=== PATIENT | female | born 1970 | race Two or more races ===

== ENCOUNTER 2017-06-22 18:11 | Emergency (ER) | payer MEDICAID ==
[~2017-06-22] VITALS: Ht 165.1 cm; Wt 96.6 kg
[~2017-06-22 18:11] MED LIST: ANTIVERT25 MG ORAL; ATIVAN0.5 MG ORAL; CIPROFLOXACIN500 M2 ORAL; FIORICET1 EA ORAL; FLONASE1 SPRAYS NASAL; IBUPROFEN600 MG ORAL; KEFLEX500 MG ORAL; MAALOX MAXIMUM355 M1 PO; MECLIZINE HCL25 MG ORAL; MEDROL DOSEPAK4 MG ORAL; NITROFURANTOIN100 M2 ORAL; OMEPRAZOLE40 M1 ORAL; PEPCID20 MG ORAL; PEPCID40 MG PO; POTASSIUM CHLO20 ME3 PO; PSEUDOEPHEDRIN120 MG PO; TAMOXIFEN CITRA10 MG ORAL; ZOFRAN ODT4 MG ORAL; ZOFRAN4 MG ORAL
[2017-06-22 18:23] VITALS: BP 147/77
--- NOTE | 2017-06-22 18:23 | Emergency Room Report ---
History of Present Illness General Chief Complaint: Upper Respiratory Illness Source: Patient, Medical Record Present Illness HPI 47-year-old female presents to the emergency department complaining of cough, congestion, rhinorrhea, increased mucus and sore throat x1 week. Patient denies fevers, chills, though contacts or recent travel. Patient denies neck pain or stiffness. Patient denies headache. Patient states she has not had her flu vaccination this year. Patient states she has been taking over-the- counter Robitussin which does not provide relief of her symptoms. Patient states that she is coughing consistently to the point that she is having body aches that she rates as 10 out of 10 in severity. Denies dyspnea, wheezing or SOB. Patient reports history of GERD and states that she needs a refill on these medications in addition to her antianxiety medication BuSpar. Denies rashes, abdominal pain, lower extremity swelling, CP, Palpitations, LOC, AMS, dizziness, Changes in Vision, Sensation, paresthesias, or a sudden severe headache. Allergies: Coded Allergies: No Known Allergies (Unverified , 12/10/12) Patient History Past Medical History: see triage record Past Surgical History: none Pertinent Family History: none Last Menstrual Period: menopause Now: No Reviewed Nursing Documentation: PMH: Agreed, PSxH: Agreed Nursing Documentation-PMH Past Medical History: No History, Except For Hx Cardiac Problems: No Hx Hypertension: No Hx Pacemaker: No Hx Asthma: No Hx COPD: No Hx Diabetes: No Hx Cancer: Yes - breast cancer, mastectomy right side 2009 Hx Gastrointestinal Problems: Yes - gastritis Hx Dialysis: No Hx Neurological Problems: No Hx Cerebrovascular Accident: No Hx Seizures: No Review of Systems All Other Systems: negative except mentioned in HPI Physical Exam Vital Signs Date Time Temp Pulse Resp B/P (MAP) Pulse Ox O2 Delivery O2 Flow Rate FiO2 06/22/17 18:13 97.9 76 18 147/77 100 Room Air Sp02 EP Interpretation: reviewed, normal General Appearance: no apparent distress, alert, GCS 15, non-toxic Head: normocephalic ENT: hearing grossly normal, normal pharynx, normal voice, TMs + canals normal , uvula midline, moist mucus membranes, nasal congestion Neck: full range of motion, no meningismus, no bony tend, supple/symm/no masses Respiratory: chest non-tender, lungs clear, normal breath sounds, no rhonchi, no respiratory distress, no wheezing, speaking full sentences Cardiovascular #1: regular rate, rhythm, normal capillary refill Musculoskeletal: back normal, gait/station normal, normal range of motion Neurologic: alert, oriented x3, responsive, motor strength/tone normal, sensory intact, speech normal Skin: normal color, no rash, warm/dry, well hydrated Lymphatic: no adenopathy Medical Decision Making PA Attestation Dr. Roberts is my supervising Physician whom patient management has been discussed with. Diagnostic Impression: Primary Impression: Upper respiratory infection Qualified Codes: J06.9 - Acute upper respiratory infection, unspecified; B97.89 - Other viral agents as the cause of diseases classified elsewhere Additional Impressions: GERD (gastroesophageal reflux disease) Qualified Codes: K21.9 - Gastro-esophageal reflux disease without esophagitis Dysuria ER Course 47-year-old female presents to the emergency department complaining of cough, congestion, rhinorrhea, increased mucus and sore throat x1 week. Patient denies fevers, chills, though contacts or recent travel. Patient denies neck pain or stiffness. Patient denies headache. Patient states she has not had her flu vaccination this year. Patient states she has been taking over-the- counter Robitussin which does not provide relief of her symptoms. Patient states that she is coughing consistently to the point that she is having body aches that she rates as 10 out of 10 in severity. Denies dyspnea, wheezing or SOB. Patient reports history of GERD and states that she needs a refill on these medications in addition to her antianxiety medication BuSpar. Denies rashes, abdominal pain, lower extremity swelling, CP, Palpitations, LOC, AMS, dizziness, Changes in Vision, Sensation, paresthesias, or a sudden severe headache. Ddx considered but are not limited to URI, pneumonia, PE, strep pharyngitis, meningitis, bronchitis. Vital signs: Pt. is afebrile, the remaining VS are WNL H&PE are most consistent with URI- no meningeal signs, oropharynx is not involved, no evidence of bacterial infection at this time. ORDERS: none required at this time, the diagnosis is clinical ED INTERVENTIONS: None required at this time. DISCHARGE: At this time pt. is stable for d/c to home. Will provide printed patient care instructions, and any necessary prescriptions. Care plan and follow up instructions have been discussed with the patient prior to discharge. Last Vital Signs Date Time Temp Pulse Resp B/P (MAP) Pulse Ox O2 Delivery O2 Flow Rate FiO2 06/22/17 18:13 97.9 76 18 147/77 100 Room Air Disposition: HOME, SELF-CARE Condition: Stable Scripts Buspirone Hcl* (BUSPIRONE HCL*) 5 Mg Tablet 5 MG ORAL TID, #90 TAB 0 Refills Prov: Francesca Winter 06/22/17 Codeine/Promethazine Hcl* (PROMETHAZINE-CODEINE SYRUP*) 118 Ml Syrup 5 ML ORAL Q6H Y for For Cough, #120 ML 0 Refills Prov: Francesca Winter 06/22/17 Guaifenesin (Guaifenesin) 1,200 Mg Tab.er.12h 1200 MG PO Q12HR, #20 TAB Prov: Francesca Winter 06/22/17 Ranitidine Hcl* (ZANTAC*) 150 Mg Tablet 150 MG ORAL TWICE A DAY, #30 TAB Prov: Francesca Winter 06/22/17 Ibuprofen* (MOTRIN*) 400 Mg Tablet 400 MG ORAL THREE TIMES A DAY, #30 TAB 0 Refills Prov: Francesca Winter 06/22/17 Phenazopyridine Hcl* (PYRIDIUM*) 200 Mg Tablet 200 MG ORAL THREE TIMES A DAY for 3 Days, #9 TAB 0 Refills Prov: Francesca Winter 06/22/17 Patient Instructions: Upper Respiratory Infection, Adult Additional Instructions: Take medications as directed. Follow up with a Primary Care Provider in 3-5 days, even if your symptoms have resolved. --Please review list of primary care clinics, if you do not already have a primary care provider Return sooner to ED if new symptoms occur, or current symptoms become worse. Do not drink alcohol, drive, or operate heavy machinery while taking Cough Syrup as this may cause drowsiness. - Please note that this Emergency Department Report was dictated using [employer] professional sports technology software, occasionally this can lead to erroneous entry secondary to interpretation by the dictation equipment. Francesca Winter Jun 22, 2017 18:23
[2017-06-22] MEDS ORDERED: GUAIFENESIN1200 MG PO (19:07)
[2017-06-22] MEDS ORDERED: ZANTAC150 MG ORAL (19:07)
[2017-06-22] MEDS ORDERED: IBUPROFEN400 MG ORAL (19:07)
[2017-06-22] MEDS ORDERED: PROMETHAZINE-C118 M1 ORAL (19:07)
[2017-06-22] MEDS ORDERED: PHENAZOPYRIDIN200 MG ORAL (19:07)
[2017-06-22] MEDS ORDERED: BUSPIRONE HCL5 M1 ORAL (19:23)
[2017-06-22 19:26] VITALS: BP 147/77
== END 2017-06-22 19:26 | disposition home or self-care (01) ==
LOC: EMR 19:15
DX: J06.9 Acute upper respiratory infection, unspecified (principal); K21.9 Gastro-esophageal reflux disease without esophagitis; R30.0 Dysuria; Z85.3 Personal history of malignant neoplasm of breast; Z90.11 Acquired absence of right breast and nipple
CPT/HCPCS: 99284

== ENCOUNTER 2017-07-06 12:30 | Emergency (ER) | payer MEDICAID ==
[~2017-07-06] VITALS: Ht 162.6 cm; Wt 90.7 kg
[~2017-07-06 12:30] MED LIST changes: +BUSPIRONE HCL5 M1 ORAL; +GUAIFENESIN1200 MG PO; +IBUPROFEN400 MG ORAL; +PHENAZOPYRIDIN200 MG ORAL; +PROMETHAZINE-C118 M1 ORAL; +ZANTAC150 MG ORAL
[2017-07-06] MEDS ORDERED: NAPROXEN500 M2 ORAL (13:05)
[2017-07-06] MEDS ORDERED: AMOXICILLIN500 MG ORAL (13:05)
[2017-07-06] MEDS ORDERED: LORazepam 0.5mg tab ORAL ONE (13:15)
[2017-07-06 13:17] LABS: KETONES,URINE NEGATIVE (NEGATIVE); LEUKOCYTE ESTERASE ,URINE 2+ (NEGATIVE); NITRITE,URINE NEGATIVE (NEGATIVE); PH,URINE 6 (4.5-8.0); PROTEIN,URINE 2+ (NEGATIVE); UROBILINOGEN,URINE NORMAL MG/DL (0.0-1.0)
[2017-07-06 13:26] LABS: APPEARANCE,URINE SLIGHTLY CLOUDY
[2017-07-06 13:27] LABS: RBC,URINE 60-80 /HPF (0 - 2)
[2017-07-06 13:28] LABS: BACTERIA,URINE FEW /HPF; SQUAMOUS EPITHELIAL CELL,UR FEW /LPF (NONE/OCC)
[2017-07-06] MEDS ORDERED: SERTRALINE HCL25 MG ORAL (13:31)
--- NOTE | 2017-07-06 13:40 | Emergency Room Report ---
History of Present Illness General Chief Complaint: Female Urogenital Problems Source: Patient Present Illness HPI The patient is a 47-year-old female presenting for abdominal pain, dysuria, and vaginal bleeding since yesterday. She was diagnosed with a UTI approximately 2 weeks prior and placed on nitrofurantoin. She states that symptoms did resolve until yesterday. She denies any vaginal bleeding until yesterday. Last normal menstrual period was in 2008 when the patient underwent chemotherapy for breast cancer which is in remission. She's also expressing abdominal pain described as an 8/10 dull ache to the mid lower abdomen. Does not radiate. No known provoking or relieving factors. She does admit to fatigue and feelings of anxiety as she recently had a family member pass away. She denies other symptoms including nausea, vomiting, fever, chills, back pain, vaginal discharge Allergies: Coded Allergies: No Known Allergies (Unverified , 12/10/12) Patient History Past Medical History: see triage record Pertinent Family History: none Reviewed Nursing Documentation: PMH: Agreed, PSxH: Agreed Nursing Documentation-PMH Hx Cardiac Problems: No Hx Hypertension: No Hx Pacemaker: No Hx Asthma: No Hx COPD: No Hx Diabetes: No Hx Cancer: Yes - breast cancer, mastectomy right side 2008 Hx Gastrointestinal Problems: Yes - gastritis Hx Dialysis: No Hx Neurological Problems: No Hx Cerebrovascular Accident: No Hx Seizures: No Review of Systems All Other Systems: negative except mentioned in HPI Physical Exam Vital Signs Date Time Temp Pulse Resp B/P (MAP) Pulse Ox O2 Delivery O2 Flow Rate FiO2 07/06/17 12:44 98.1 82 20 135/87 99 Room Air Sp02 EP Interpretation: reviewed, normal General Appearance: no apparent distress, alert, GCS 15, non-toxic Head: normocephalic, atraumatic Eyes: bilateral eye normal inspection, bilateral eye PERRL ENT: hearing grossly normal, normal pharynx, no angioedema, normal voice Neck: full range of motion, supple/symm/no masses Respiratory: chest non-tender, lungs clear, normal breath sounds, speaking full sentences Cardiovascular #1: regular rate, rhythm, no edema Gastrointestinal: normal bowel sounds, soft, non-distended, no guarding, no rebound, tenderness - suprapubic Genitourinary: normal inspection, no CVA tenderness Musculoskeletal: back normal, gait/station normal, normal range of motion, non- tender Neurologic: alert, oriented x3, responsive, motor strength/tone normal, sensory intact, speech normal Psychiatric: judgement/insight normal, memory normal, mood/affect normal, no suicidal/homicidal ideation Skin: normal color, no rash, warm/dry, well hydrated Medical Decision Making PA Attestation Dr. Orourke is my supervising physician. Patient management was discussed with my supervising physician Diagnostic Impression: Primary Impression: Endometrial mass Additional Impression: Anxiety ER Course The patient is a 47-year-old female presenting for abdominal pain, dysuria, and vaginal bleeding since yesterday Differential diagnoses considered include but not limited to Uterine fibroids, ovarian cyst, UTI, malignancy, among others Physical exam: Afebrile. No apparent distress Abdomen is soft. There is tenderness over suprapubic region only. Normal bowel sounds. Nondistended. no CVA tenderness Blood work unremarkable. UA shows blood. No signs of infection US: Pelvic ultrasound shows endometrial mass which could be consistent with malignancy. The patient was given this report and findings interpreted with son in the room. The report was given to the patient and she will followup with her primary doctor soon as possible. She was informed of the urgency of this matter. The patient has been having anxiety due to recent passing of her brother. This news has furthered the feelings. The patient will be discharged home with a limited prescription for Ativan. ER precautions are given Laboratory Tests Test 07/06/17 12:55 07/06/17 13:54 07/06/17 14:45 Urine Color Pale yellow Urine Appearance Slightly cloudy Urine pH 6 (4.5-8.0) Urine Specific [place] 1.015 (1.005-1.035) Urine Protein 2+ (NEGATIVE) H Urine Glucose (UA) Negative (NEGATIVE) Urine Ketones Negative (NEGATIVE) Urine Occult Blood 5+ (NEGATIVE) H Urine Nitrite Negative (NEGATIVE) Urine Bilirubin Negative (NEGATIVE) Urine Urobilinogen Normal MG/DL (0.0-1.0) Urine Leukocyte Esterase 2+ (NEGATIVE) H Urine RBC 60-80 /HPF (0 - 2) H Urine WBC 2-4 /HPF (0 - 2) Urine Squamous Epithelial Cells Few /LPF (NONE/OCC) Urine Bacteria Few /HPF (NONE) White Blood Count 8.1 K/UL (4.8-10.8) Red Blood Count 4.89 M/UL (4.20-5.40) Hemoglobin 15.3 G/DL (12.0-16.0) Hematocrit 46.4 % (37.0-47.0) Mean Corpuscular Volume 95 FL (80-99) Mean Corpuscular Hemoglobin 31.3 PG (27.0-31.0) H Mean Corpuscular Hemoglobin Concent 33.0 G/DL (32.0-36.0) Red Cell Distribution Width 12.4 % (11.6-14.8) Platelet Count 259 K/UL (150-450) Mean Platelet Volume 7.2 FL (6.5-10.1) Neutrophils (%) (Auto) 58.6 % (45.0-75.0) Lymphocytes (%) (Auto) 34.1 % (20.0-45.0) Monocytes (%) (Auto) 5.9 % (1.0-10.0) Eosinophils (%) (Auto) 0.4 % (0.0-3.0) Basophils (%) (Auto) 1.0 % (0.0-2.0) Sodium Level 138 MMOL/L (136-145) Potassium Level 4.1 MMOL/L (3.5-5.1) Chloride Level 103 MMOL/L (98-107) Carbon Dioxide Level 29 MMOL/L (21-32) Anion Gap 6 mmol/L (5-15) Blood Urea Nitrogen 11 mg/dL (7-18) Creatinine 0.8 MG/DL (0.55-1.30) Estimate Glomerular Filtration Rate > 60 mL/min (>60) Glucose Level 137 MG/DL (74-106) H Calcium Level 8.8 MG/DL (8.5-10.1) Total Bilirubin 0.3 MG/DL (0.2-1.0) Aspartate Amino Transferase (AST) 24 U/L (15-37) Alanine Aminotransferase (ALT) 52 U/L (12-78) Alkaline Phosphatase 61 U/L (46-116) Total Protein 7.9 G/DL (6.4-8.2) Albumin 3.6 G/DL (3.4-5.0) Globulin 4.3 g/dL Albumin/Globulin Ratio 0.8 (1.0-2.7) L Prothrombin Time 12.4 SEC (9.30-11.50) H Prothrombin Time INR 1.2 (0.9-1.1) H PTT 34 SEC (23-33) H Lab Results Impression Blood work unremarkable. UA shows blood. No signs of infection CT/MRI/US Diagnostic Results CT/MRI/US Diagnostic Results : Imaging Test Ordered: Pelvic US Impression Pelvic ultrasound shows endometrial mass which could be consistent with malignancy. Last Vital Signs Date Time Temp Pulse Resp B/P (MAP) Pulse Ox O2 Delivery O2 Flow Rate FiO2 07/06/17 12:44 98.1 82 20 135/87 99 Room Air Status: improved Disposition: HOME, SELF-CARE Condition: Improved Scripts Lorazepam* (ATIVAN*) 0.5 Mg Tablet 0.5 MG ORAL THREE TIMES A DAY, #12 TAB Prov: SU GARCES 07/06/17 Ibuprofen* (MOTRIN*) 600 Mg Tablet 600 MG ORAL Q8H Y for For Pain, #30 TAB 0 Refills Prov: SU GARCES 07/06/17 Referrals: NOT CHOSEN IPA/,REFERRING (PCP) Additional Instructions: I discussed my findings with the patient. All questions and concerns have been answered. Treatment and medication compliance have been addressed. I advised the patient that they need to follow up with PMD in 3-5 days. Return to ED if pain remains or worsens, cough worsens or remains, you notice blood in your sputum, you notice wheezing, you experience a fever, or if needed for any reason. Patient verbalized understanding of discharge instructions. SU GARCES Jul 06, 2017 13:40
[2017-07-06 14:12] LABS: ANION GAP 6 mmol/L (5-15); CALCIUM 8.8 MG/DL (8.5-10.1); CARBON DIOXIDE 29 MMOL/L (21-32); CHLORIDE 103 MMOL/L (98-107); CREATININE 0.8 MG/DL (0.55-1.30); GLOMERULAR FILTRATION RATE > 60 mL/min (>60); POTASSIUM 4.1 MMOL/L (3.5-5.1); SODIUM 138 MMOL/L (136-145)
[2017-07-06 14:17] LABS: ALANINE AMINOTRANSFERASE 52 U/L (12-78); ALBUMIN/GLOBULIN RATIO 0.8 (1.0-2.7); ASPARTATE AMINO TRANSFERASE 24 U/L (15-37); TOTAL PROTEIN 7.9 G/DL (6.4-8.2)
[2017-07-06 14:18] LABS: EOSINOPHILS % (AUTO) 0.4 % (0.0-3.0); LYMPHOCYTES % (AUTO) 34.1 % (20.0-45.0); MEAN CORPUSCULAR HEMOGLOBIN 31.3 PG (27.0-31.0); MEAN CORPUSCULAR VOLUME 95 FL (80-99); MEAN PLATELET VOLUME 7.2 FL (6.5-10.1); MONOCYTES % (AUTO) 5.9 % (1.0-10.0); NEUTROPHILS % (AUTO) 58.6 % (45.0-75.0); PLATELET COUNT 259 K/UL (150-450); RED BLOOD COUNT 4.89 M/UL (4.20-5.40); RED CELL DISTRIBUTION WIDTH 12.4 % (11.6-14.8); WHITE BLOOD COUNT 8.1 K/UL (4.8-10.8)
[2017-07-06 14:50] VITALS: BP 128/84
[2017-07-06 15:13] LABS: INR 1.2 (0.9-1.1); PROTHROMBIN TIME 12.4 SEC (9.30-11.50)
[2017-07-06 16:55] VITALS: BP 130/78
[2017-07-06] MEDS ORDERED: IBUPROFEN600 MG ORAL (18:36)
[2017-07-06] MEDS ORDERED: ATIVAN0.5 MG ORAL (18:36)
[2017-07-06 18:47] VITALS: BP 128/85
--- NOTE | 2017-07-08 10:39 | Diagnostic Imaging Report ---
Indication:Lower abdominal and pelvic pain Technique: Grayscale and duplex Doppler imaging of the pelvis performed utilizing a transabdominal scan and endovaginal scan. Comparison: None Findings: The endometrium is abnormally thickened and heterogeneous with multiple cystic regions noted. Further clinical evaluation possibly with hysteroscopy is suggested. The possibility of endometrial carcinoma should be considered. Differential includes a endometrial polyp versus hyperplasia. Within the uterine myometrium there are several discrete hypoechoic lesions likely fibroids. There is a dominant cyst demonstrated within the right ovary measuring approximately 4 cm. The left ovary is not visualized. The right ovary measures 4 x 4 0.2 x 2.7 CM. Uterus measures 12 x 10 x 8 CM. Impression: Abnormal appearance of the endometrium as described above. Further clinical evaluation is recommended. Biopsy may be needed. Dominant right ovarian cyst. Followup recommended. Nonvisualization of the left ovary [facility] has communicated the preliminary results to the Emergency Department. Their findings are largely concordant with this report.
== END 2017-07-06 18:50 | disposition home or self-care (01) ==
LOC: EMR 12:55
DX: R19.09 Other intra-abdominal and pelvic swelling, mass and lump (principal); F41.9 Anxiety disorder, unspecified; Z85.3 Personal history of malignant neoplasm of breast; Z90.11 Acquired absence of right breast and nipple
CPT/HCPCS: 36415; 76830; 76856; 80053; 81003; 85025; 85610; 85730; 99284

== ENCOUNTER 2017-08-26 19:14 | Emergency (ER) | payer MEDICAID ==
[~2017-08-26] VITALS: Ht 165.1 cm; Wt 95.3 kg
[~2017-08-26 19:14] MED LIST changes: +AMOXICILLIN500 MG ORAL; +NAPROXEN500 M2 ORAL; +SERTRALINE HCL25 MG ORAL
[2017-08-26 19:50] VITALS: BP 113/76
[2017-08-26] MEDS ORDERED: Meclizine 25mg tab ORAL ONE (20:30)
[2017-08-26] MEDS ORDERED: Dicyclomine HCl 10mg/5ml oral soln ORAL ONE (20:30)
[2017-08-26] MEDS ORDERED: Lidocaine 2% Visc 15ml soln ORAL ONE (20:30)
[2017-08-26] MEDS ORDERED: Mylanta II UD 30ml ORAL ONE (20:30)
[2017-08-26] MEDS ORDERED: RANITIDINE HCL150 MG ORAL (20:37)
[2017-08-26] MEDS ORDERED: ZOFRAN ODT4 MG ORAL (20:37)
[2017-08-26] MEDS ORDERED: MECLIZINE HCL25 MG ORAL (20:37)
[2017-08-26 20:41] VITALS: BP 112/74
[2017-08-26 20:44] VITALS: BP 112/74
--- NOTE | 2017-08-26 21:45 | Emergency Room Report ---
History of Present Illness General Chief Complaint: Nausea Source: Patient, Family Member Present Illness HPI 47-year-old female presents ED for evaluation. States the last 3 days she been feeling dizzy with headache. Also complaining of abdominal pain. Epigastric, throbbing, nonradiating. 03/27. Has history of gastritis. Denies fevers or chills. Denies neck stiffness. Denies chest pain or shortness of breath. Please of nausea denies vomiting. Mother aggravating relieving factors. Denies any other associated symptoms Allergies: Coded Allergies: No Known Allergies (Unverified , 12/10/12) Patient History Past Medical History: GERD Past Surgical History: none Pertinent Family History: none Social History: Denies: smoking, alcohol use, drug use Last Menstrual Period: 2008 Now: No Immunizations: UTD Reviewed Nursing Documentation: PMH: Agreed, PSxH: Agreed Nursing Documentation-PMH Hx Cardiac Problems: No Hx Hypertension: No Hx Pacemaker: No Hx Asthma: No Hx COPD: No Hx Diabetes: No Hx Cancer: Yes - breast cancer, mastectomy right side 2008 Hx Gastrointestinal Problems: Yes - gastritis Hx Dialysis: No Hx Neurological Problems: No Hx Cerebrovascular Accident: No Hx Seizures: No Review of Systems All Other Systems: negative except mentioned in HPI Physical Exam Vital Signs Date Time Temp Pulse Resp B/P (MAP) Pulse Ox O2 Delivery O2 Flow Rate FiO2 08/26/17 19:34 99.1 75 16 113/76 96 Room Air Sp02 EP Interpretation: reviewed, normal General Appearance: no apparent distress, alert, GCS 15, non-toxic Head: normocephalic, atraumatic Eyes: bilateral eye normal inspection, bilateral eye PERRL ENT: hearing grossly normal, normal pharynx, no angioedema, normal voice Neck: full range of motion, supple/symm/no masses Respiratory: chest non-tender, lungs clear, normal breath sounds, speaking full sentences Cardiovascular #1: regular rate, rhythm, no edema Cardiovascular #2: 2+ carotid (R), 2+ carotid (L), 2+ radial (R), 2+ radial (L) , 2+ dorsalis pedis (R), 2+ dorsalis pedis (L) Gastrointestinal: normal bowel sounds, non tender, soft, non-distended, no guarding, no rebound Rectal: deferred Genitourinary: normal inspection, no CVA tenderness Musculoskeletal: back normal, gait/station normal, normal range of motion, non- tender Neurologic: alert, oriented x3, responsive, motor strength/tone normal, sensory intact, speech normal Psychiatric: judgement/insight normal, memory normal, mood/affect normal, no suicidal/homicidal ideation Reflexes: 3+ bicep (R), 3+ bicep (L), 3+ tricep (R), 3+ tricep (L), 3+ knee (R) , 3+ knee (L) Skin: normal color, no rash, warm/dry, well hydrated Lymphatic: no adenopathy Medical Decision Making Diagnostic Impression: Primary Impression: Vertigo Additional Impressions: Gastritis Qualified Codes: K29.50 - Unspecified chronic gastritis without bleeding Anxiety ER Course Hospital Course 47-year-old F presents to ED with epigastric pain with Nausea, dizziness differential diagnosis: gastritis, SBO, cholecystits Clinical course Patient placed in chair. I reviewed EMR. Patient has been here multiple times for similar presentations of anxiety, vertigo, gastritis. Patient responded well to meclizine, GI cocktail and by mouth pepcid physical exam is unremarkable. EKG shows normal sinus rhythm no acute ischemic changes Patient feels better on reassessment. I priti patient can be safely discharged to home without further workup at this time I feel this is a highly complex case requiring extensive working including EKG/ Rhythm strip, Xray/CT/US, Blood/urine lab work, repeat exams while in ED, and administration of strong opiates/narcotics for pain control, admission to hospital or close patient follow up. Diagnosis - gastritis, vertigo, anxiety Stable and discharged to home with prescriptions for Zantac, zofran, meclizine. Followup with PMD. Return to ED if symptoms recur or worsen EKG Diagnostic Results Rate: normal Rhythm: NSR ST Segments: no acute changes ASA given to the pt in ED: No Rhythm Strip Diag. Results EP Interpretation: yes Rhythm: NSR, no PVC's, no ectopy Last Vital Signs Date Time Temp Pulse Resp B/P (MAP) Pulse Ox O2 Delivery O2 Flow Rate FiO2 08/26/17 20:44 98.9 72 16 112/74 96 Room Air Status: improved Disposition: HOME, SELF-CARE Condition: Stable Scripts Ranitidine Hcl* (ZANTAC*) 150 Mg Tablet 150 MG ORAL TWICE A DAY, #30 TAB Prov: CAL GUZMAN M.D. 08/26/17 Meclizine Hcl* (MECLIZINE*) 25 Mg Tablet 25 MG ORAL THREE TIMES A DAY, #20 TAB Prov: CAL GUZMAN M.D. 08/26/17 Ondansetron Odt* (ZOFRAN ODT*) 4 Mg Tab.rapdis 4 MG ORAL Q6H Y for Nausea & Vomiting, #30 TAB 0 Refills Prov: CAL GUZMAN M.D. 08/26/17 Referrals: NON PHYSICIAN (PCP) Patient Instructions: Gastritis, Adult, [id number] CAL GUZMAN M.D. Aug 26, 2017 21:45
--- NOTE | 2017-08-29 15:04 | Cardiology Report ---
APPROVED REPORT EKG Measurement Heart [id number] Normal sinus rhythm Normal ECG
== END 2017-08-26 20:46 | disposition home or self-care (01) ==
LOC: EMR 19:45
DX: K29.50 Unspecified chronic gastritis without bleeding (principal); R42 Dizziness and giddiness; F41.9 Anxiety disorder, unspecified; Z85.3 Personal history of malignant neoplasm of breast; Z90.11 Acquired absence of right breast and nipple
CPT/HCPCS: 93005; 99283

== ENCOUNTER 2018-01-19 19:40 | Emergency (ER) | payer MEDICAID ==
[~2018-01-19] VITALS: Ht 167.6 cm; Wt 106.6 kg
[~2018-01-19 19:40] MED LIST changes: +RANITIDINE HCL150 MG ORAL
[2018-01-19] MEDS ORDERED: Meclizine 25mg tab ORAL ONE (20:15)
[2018-01-19 20:57] LABS: BASOPHILS % (AUTO) 1.2 % (0.0-2.0); EOSINOPHILS % (AUTO) 1.7 % (0.0-3.0); HEMATOCRIT 42.7 % (37.0-47.0); HEMOGLOBIN 14.4 G/DL (12.0-16.0); LYMPHOCYTES % (AUTO) 41.4 % (20.0-45.0); MEAN CORPUSCULAR VOLUME 89 FL (80-99); MONOCYTES % (AUTO) 3.7 % (1.0-10.0); PLATELET COUNT 261 K/UL (150-450); RED BLOOD COUNT 4.79 M/UL (4.20-5.40); RED CELL DISTRIBUTION WIDTH 12.7 % (11.6-14.8); WHITE BLOOD COUNT 9.5 K/UL (4.8-10.8)
[2018-01-19 21:01] LABS: ANION GAP 11 mmol/L (5-15); BLOOD UREA NITROGEN 12 mg/dL (7-18); CALCIUM 8.8 MG/DL (8.5-10.1); CARBON DIOXIDE 26 MMOL/L (21-32); CHLORIDE 104 MMOL/L (98-107); CREATININE 0.8 MG/DL (0.55-1.30); POTASSIUM 4.1 MMOL/L (3.5-5.1); SODIUM 141 MMOL/L (136-145)
[2018-01-19 21:10] LABS: ALANINE AMINOTRANSFERASE 48 U/L (12-78); ALBUMIN 3.4 G/DL (3.4-5.0); ALBUMIN/GLOBULIN RATIO 0.7 (1.0-2.7); ALKALINE PHOSPHATASE 75 U/L (46-116); ASPARTATE AMINO TRANSFERASE 36 U/L (15-37); BILIRUBIN,TOTAL 0.3 MG/DL (0.2-1.0); CREATINE KINASE 105 U/L (26-308)
[2018-01-19 21:30] LABS: CKMB 0.6 NG/ML (0.0-3.6)
[2018-01-19 21:58] VITALS: BP 137/95
--- NOTE | 2018-01-19 21:58 | Emergency Room Report ---
History of Present Illness General Chief Complaint: Dizziness Source: Patient, Family Member Present Illness HPI This patient states that 3 days ago she woke up with a spinning sensation. She has also had nausea and vomiting. She states that the symptoms are much worse with sitting up or walking. The symptoms also occur with turning her head. She has had similar symptoms in the past. She denies headache. She denies trauma. She denies fever or chills. She denies recent illness. She also has another complaint that her gastritis has been poorly controlled. She has seen her primary care physician but has only been on [id number] Prilosec. She states that her symptoms persist. She has no other complaints. Allergies: Coded Allergies: No Known Allergies (Unverified , 12/10/12) Patient History Past Medical History: see triage record, GERD Past Surgical History: other - Breast Ca Social History: Denies: smoking, alcohol use, drug use Last Menstrual Period: 2008 Now: No Reviewed Nursing Documentation: PMH: Agreed; PSxH: Agreed Nursing Documentation-PMH Past Medical History: No History, Except For Hx Cardiac Problems: No Hx Hypertension: No Hx Pacemaker: No Hx Asthma: No Hx COPD: No Hx Diabetes: No Hx Cancer: Yes - breast cancer, mastectomy right side 2008 Hx Gastrointestinal Problems: Yes - gastritis Hx Dialysis: No Hx Neurological Problems: No Hx Cerebrovascular Accident: No Hx Seizures: No Review of Systems All Other Systems: negative except mentioned in HPI Physical Exam Vital Signs Date Time Temp Pulse Resp B/P (MAP) Pulse Ox O2 Delivery O2 Flow Rate FiO2 01/19/18 19:58 98.9 95 16 137/95 95 Room Air 99.0 Sp02 EP Interpretation: reviewed, normal General Appearance: no apparent distress, alert, GCS 15, non-toxic Head: normocephalic, atraumatic Eyes: bilateral eye normal inspection, bilateral eye PERRL ENT: hearing grossly normal, normal pharynx, no angioedema, normal voice Neck: full range of motion, supple/symm/no masses Respiratory: chest non-tender, lungs clear, normal breath sounds, speaking full sentences Cardiovascular #1: regular rate, rhythm, no edema Gastrointestinal: normal bowel sounds, non tender, soft, non-distended, no guarding, no rebound Rectal: deferred Musculoskeletal: back normal, gait/station normal, normal range of motion, non- tender Neurologic: alert, oriented x3, responsive, motor strength/tone normal, sensory intact, speech normal Psychiatric: judgement/insight normal, memory normal, mood/affect normal, no suicidal/homicidal ideation Skin: normal color, no rash, warm/dry, well hydrated Medical Decision Making Diagnostic Impression: Primary Impression: Vertigo Additional Impression: Hyperglycemia ER Course This patient has a physical exam at presentation consistent with benign positional vertigo. Other considerations include labyrinthitis, Mnire's disease, central vertigo. The patient's symptoms are short and episodic and have been positional. There are no central neurologic findings on physical exam which is very reassuring that this is not a posterior circulation stroke. Laboratory workup, EKG are unremarkable other than the patient has an elevated blood sugar. I will treat the patient with meclizine and have the patient follow up closely with the primary care physician. The patient was educated that she should f/u with the pcp for monitoring of the blood sugar. The patient was given return precautions and followup instructions. Laboratory Tests Test 01/19/18 20:10 01/19/18 20:30 Urine Opiates Screen Negative (NEGATIVE) Urine Barbiturates Screen Negative (NEGATIVE) Phencyclidine (PCP) Screen Negative (NEGATIVE) Urine Amphetamines Screen Negative (NEGATIVE) Urine Benzodiazepines Screen Negative (NEGATIVE) Urine Cocaine Screen Negative (NEGATIVE) Urine Marijuana (THC) Screen Negative (NEGATIVE) White Blood Count 9.5 K/UL (4.8-10.8) Red Blood Count 4.79 M/UL (4.20-5.40) Hemoglobin 14.4 G/DL (12.0-16.0) Hematocrit 42.7 % (37.0-47.0) Mean Corpuscular Volume 89 FL (80-99) Mean Corpuscular Hemoglobin 30.0 PG (27.0-31.0) Mean Corpuscular Hemoglobin Concent 33.7 G/DL (32.0-36.0) Red Cell Distribution Width 12.7 % (11.6-14.8) Platelet Count 261 K/UL (150-450) Mean Platelet Volume 7.0 FL (6.5-10.1) Neutrophils (%) (Auto) 52.0 % (45.0-75.0) Lymphocytes (%) (Auto) 41.4 % (20.0-45.0) Monocytes (%) (Auto) 3.7 % (1.0-10.0) Eosinophils (%) (Auto) 1.7 % (0.0-3.0) Basophils (%) (Auto) 1.2 % (0.0-2.0) Sodium Level 141 MMOL/L (136-145) Potassium Level 4.1 MMOL/L (3.5-5.1) Chloride Level 104 MMOL/L (98-107) Carbon Dioxide Level 26 MMOL/L (21-32) Anion Gap 11 mmol/L (5-15) Blood Urea Nitrogen 12 mg/dL (7-18) Creatinine 0.8 MG/DL (0.55-1.30) Estimate Glomerular Filtration Rate > 60 mL/min (>60) Glucose Level 174 MG/DL (74-106) H Calcium Level 8.8 MG/DL (8.5-10.1) Total Bilirubin 0.3 MG/DL (0.2-1.0) Aspartate Amino Transferase (AST) 36 U/L (15-37) Alanine Aminotransferase (ALT) 48 U/L (12-78) Alkaline Phosphatase 75 U/L (46-116) Total Creatine Kinase 105 U/L (26-308) Creatine Kinase MB 0.6 NG/ML (0.0-3.6) Creatine Kinase MB Relative Index 0.5 Troponin I 0.000 ng/mL (0.000-0.056) Total Protein 8.0 G/DL (6.4-8.2) Albumin 3.4 G/DL (3.4-5.0) Globulin 4.6 g/dL Albumin/Globulin Ratio 0.7 (1.0-2.7) L EKG Diagnostic Results Rate: normal Rhythm: NSR ST Segments: no acute changes Rhythm Strip Diag. Results EP Interpretation: yes Rate: 90's Rhythm: NSR, no PVC's, no ectopy Chest X-Ray Diagnostic Results Chest X-Ray Diagnostic Results : Chest X-Ray Ordered: Yes # of Views/Limited/Complete: 1 View Indication: Other Interpretation: no consolidation, no effusion, no pneumothorax, no acute cardiopulmonary disease Impression: No acute disease Electronically Signed by: Ariana Last Vital Signs Date Time Temp Pulse Resp B/P (MAP) Pulse Ox O2 Delivery O2 Flow Rate FiO2 01/19/18 19:58 98.9 95 16 137/95 95 Room Air 99.0 Status: improved Disposition: HOME, SELF-CARE Condition: Improved Referrals: NOT CHOSEN IPA/MD,REFERRING (PCP) Patient Instructions: Vertigo MEET GONZALES D.O. Jan 19, 2018 21:58
[2018-01-19] MEDS ORDERED: MECLIZINE HCL25 MG ORAL (21:59)
[2018-01-19] MEDS ORDERED: NEXIUM40 MG ORAL (21:59)
--- NOTE | 2018-01-20 10:32 | Diagnostic Imaging Report ---
Indication: Shortness of breath Technique: One view of the chest Comparison: 02/10/2014 Findings: The lungs and pleural spaces are clear. Heart size is normal. The aorta is tortuous. There are right axillary surgical clips again demonstrated. No significant interim change Impression: No acute process
--- NOTE | 2018-01-20 13:50 | Cardiology Report ---
APPROVED REPORT EKG Measurement Heart [id number] Normal sinus rhythm Possible Anterior infarct, age undetermined Abnormal ECG
== END 2018-01-19 22:32 | disposition home or self-care (01) ==
LOC: EMR 20:30
DX: R42 Dizziness and giddiness (principal); R73.9 Hyperglycemia, unspecified; R11.2 Nausea with vomiting, unspecified; Z85.3 Personal history of malignant neoplasm of breast; Z90.11 Acquired absence of right breast and nipple; K21.9 Gastro-esophageal reflux disease without esophagitis
CPT/HCPCS: 36415; 71045; 80053; 80307; 82550; 82553; 84484; 85025; 93005; 96374; 96375; 99283

== ENCOUNTER 2018-08-17 12:41 | Emergency (ER) | payer MEDICAID ==
[~2018-08-17] VITALS: Ht 165.1 cm; Wt 99.8 kg
[~2018-08-17 12:41] MED LIST changes: +NEXIUM40 MG ORAL
[2018-08-17 12:58] VITALS: BP 131/82
[2018-08-17] MEDS ORDERED: TAMOXIFEN CITRA10 MG ORAL (12:59)
--- NOTE | 2018-08-17 13:00 | NUR ---
ED Nurse Note: pt walked into ED c/o cp leftside radiating to back and left arm since last night. pt states pain is 9/10, sharp and comes and goes, feeling weak, dizzy and nausea. Pt AA&ox4, gcs=15, skin warm and dry, resp even and unlabored, -n/v/d, ambulates w/ steady gait. will continue to monitor. 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
[2018-08-17] MEDS ORDERED: ROBAXIN-750750 MG PO (13:25)
[2018-08-17 13:46] VITALS: BP 114/67
--- NOTE | 2018-08-17 13:46 | NUR ---
ED Nurse Note: pt discharge instruction provided w/ prescription, pt's son at the bedside, pt education done, id band removed, vss, pt verbalized understanding and agrees with plan, pt advised to follow up with pcp in 2-3days, return to ED if s/s worsen or new s/s develop. pt belonging sent with pt.
--- NOTE | 2018-08-17 15:55 | Emergency Room Report ---
History of Present Illness General Chief Complaint: Chest Pain Source: Patient Present Illness HPI Patient sense with complaints of left shoulder pain and arm numbness ongoing for the past 3 days off-and-on Patient also has some discomfort to the left rhomboid region Denies any fall or trauma Denies any chest pain or shortness of breath Denies any pleurisy patient is on oral medication for left breast cancer Allergies: Coded Allergies: No Known Allergies (Unverified , 08/17/18) Patient History Past Medical History: see triage record Pertinent Family History: none Last Menstrual Period: aug 05, 2018 Reviewed Nursing Documentation: PMH: Agreed; PSxH: Agreed Nursing Documentation-PMH Past Medical History: No History, Except For Hx Cardiac Problems: No Hx Hypertension: No Hx Pacemaker: No Hx Asthma: No Hx COPD: No Hx Diabetes: No Hx Cancer: Yes - breast cancer, mastectomy right side 2009 Hx Gastrointestinal Problems: Yes - gastritis Hx Dialysis: No Hx Neurological Problems: No Hx Cerebrovascular Accident: No Hx Seizures: No Review of Systems All Other Systems: negative except mentioned in HPI Physical Exam Vital Signs Date Time Temp Pulse Resp B/P (MAP) Pulse Ox O2 Delivery O2 Flow Rate FiO2 08/17/18 12:54 98.4 89 16 131/82 95 Room Air Sp02 EP Interpretation: reviewed, normal General Appearance: well appearing, no apparent distress Head: normocephalic, atraumatic Eyes: bilateral eye PERRL, bilateral eye EOMI ENT: hearing grossly normal, normal pharynx, TMs + canals normal, uvula midline Neck: full range of motion, supple, no meningismus, no bony tend Respiratory: lungs clear, normal breath sounds, no rhonchi, no respiratory distress, no retraction, no accessory muscle use Cardiovascular #1: normal peripheral pulses, regular rate, rhythm, no edema, no gallop, no JVD, no murmur Gastrointestinal: normal bowel sounds, non tender, soft, no mass, no organomegaly, non-distended, no guarding, no hernia, no pulsatile mass, no rebound Genitourinary: no CVA tenderness Musculoskeletal: other - Patient has fairly specific pinpoint discomfort in the left mid rhomboid region has discomfort with trying to extend the arm across her body and on palpation Neurologic: oriented x3, 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, 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, motor strength/ tone normal, sensory intact Psychiatric: mood/affect normal Skin: normal color, no rash, warm/dry, palpation normal Lymphatic: normal inspection, no adenopathy Medical Decision Making Diagnostic Impression: Primary Impression: Chest pain Additional Impression: neuropathy ER Course Multiple differentials considered including but not limited to Cardiac, cardiopulmonary, vascular, infectious pathology Patient's EKG is normal patient remains hemodynamically stable has fairly clear reproducible discomfort Patient will have initial conservative outpatient trial and return with any changes EKG Diagnostic Results Rate: normal Rhythm: NSR ST Segments: no acute changes Rhythm Strip Diag. Results EP Interpretation: yes Rate: 60 Rhythm: NSR, no PVC's, no ectopy Last Vital Signs Date Time Temp Pulse Resp B/P (MAP) Pulse Ox O2 Delivery O2 Flow Rate FiO2 08/17/18 13:46 98.2 89 16 114/67 100 Room Air Status: improved Disposition: HOME, SELF-CARE Condition: Stable Scripts Methocarbamol* (ROBAXIN-750*) 750 Mg Tablet 750 MG PO TID, #21 TAB 0 Refills Prov: Jay Rebolalr DO 08/17/18 Referrals: NOT CHOSEN IPA/MD,REFERRING (PCP) Patient Instructions: Nonspecific Chest Pain, Peripheral Neuropathy Additional Instructions: Patient is provided with the discharge instructions notified to follow up with primary doctor in the next 2-3 days otherwise return to the er with any worsening symptoms. Please note that this report is being documented using [employer] technology. This can lead to erroneous entry secondary to incorrect interpretation by the dictating instrument. Jay Rebollar DO Aug 17, 2018 15:55
== END 2018-08-17 13:46 | disposition home or self-care (01) ==
LOC: EMR 13:35
DX: R07.9 Chest pain, unspecified (principal); Z90.11 Acquired absence of right breast and nipple; Z85.3 Personal history of malignant neoplasm of breast; G62.9 Polyneuropathy, unspecified
CPT/HCPCS: 99283

== ENCOUNTER 2019-10-27 18:58 | Emergency (ER) | payer MEDICAID ==
[~2019-10-27] VITALS: Ht 165.1 cm; Wt 106.6 kg
[~2019-10-27 18:58] MED LIST changes: +ROBAXIN-750750 MG PO
[2019-10-27 19:16] VITALS: BP 147/86
--- NOTE | 2019-10-27 19:16 | NUR ---
ED Nurse Note: pt stated that she fell earlier today while walking at home and landed on right side and right arm. Pt states that she has severe pain in leg and arm that radiates to neck. VS elevated, ERMD aware. at bedside. ERPA at bedside for inital assessment.
--- NOTE | 2019-10-27 19:27 | NUR ---
ED Nurse Note: xray at bedside
[2019-10-27] MEDS ORDERED: Morphine Sulfate 2mg/ml Inj(IV/IM USE ONLY) IVP ONE (19:30)
--- NOTE | 2019-10-27 19:32 | NUR ---
ED Nurse Note: All medications administered, pt tolerated well. no ss ofdistress noted. no adverse reactions noted.
--- NOTE | 2019-10-27 20:15 | NUR ---
ED Nurse Note: Pt taken to Ct in stable condition; no ss of distress noted. VSS.
--- NOTE | 2019-10-27 20:33 | Diagnostic Imaging Report ---
Indications: Pain, status post fall Technique: Spiral acquisitions obtained through the brain. Angled axial and coronal 5 x 5 mm slices were reconstructed. Total dose length product 1019 mGycm. CTDI vol(s) 53 mGy. Dose reduction achieved using automated exposure control Comparison: 04/30/2016 Findings: No acute intracranial hemorrhage or edema. No mass effect nor midline shift. Normal gibson-white differentiation. Normal size ventricles and extra axial CSF spaces. Intact calvarium. The mastoids are clear. The visualized sinuses are clear. Impression: Negative This agrees with the preliminary interpretation provided overnight by [facility]. The CT scanner at [facility] is accredited by the [employer] and the scans are performed using protocols designed to limit radiation exposure to as low as reasonably achievable to attain images of sufficient resolution adequate for diagnostic evaluation.
--- NOTE | 2019-10-27 20:35 | NUR ---
ED Nurse Note: pt returned from CT in stable condition
--- NOTE | 2019-10-27 20:38 | Emergency Room Report ---
History of Present Illness General Chief Complaint: Upper Extremity Injury Source: Patient, Family Member Present Illness HPI 49-year-old female with no significant past medical history here complaining of a 10 out of 10 right shoulder pain, 3/10 right knee pain, and headache after fall earlier today. Right shoulder appears to be dislocated. Has not taken medication for symptom relief. Does not know if she hit her head or not however complains of headache and dizziness. Patient is currently not taking any blood thinners. Denies any tingling or numbness. Denies all other injuries , loss of consciousness. Allergies: Coded Allergies: No Known Allergies (Unverified , 08/17/18) Patient History Past Medical History: see triage record Past Surgical History: none Pertinent Family History: none Last Menstrual Period: na Now: No Immunizations: UTD Reviewed Nursing Documentation: PMH: Agreed; PSxH: Agreed Nursing Documentation-PMH Past Medical History: No History, Except For Hx Cardiac Problems: No Hx Hypertension: No Hx Pacemaker: No Hx Asthma: No Hx COPD: No Hx Diabetes: No Hx Cancer: Yes - breast cancer, mastectomy right side 2009 Hx Gastrointestinal Problems: Yes - gastritis Hx Dialysis: No Hx Neurological Problems: No Hx Cerebrovascular Accident: No Hx Seizures: No Review of Systems All Other Systems: negative except mentioned in HPI Physical Exam Vital Signs Date Time Temp Pulse Resp B/P (MAP) Pulse Ox O2 Delivery O2 Flow Rate FiO2 10/27/19 19:06 98.4 100 18 147/86 (106) 97 Room Air Sp02 EP Interpretation: reviewed, normal General Appearance: alert, GCS 15, non-toxic, mild distress Head: normocephalic, atraumatic Eyes: bilateral eye normal inspection, bilateral eye PERRL ENT: hearing grossly normal, normal pharynx, no angioedema, normal voice Neck: full range of motion, supple/symm/no masses Respiratory: chest non-tender, lungs clear, normal breath sounds, no rhonchi, no retraction, speaking full sentences Cardiovascular #1: regular rate, rhythm, no edema, no murmur Cardiovascular #2: 2+ carotid (R), 2+ carotid (L), 2+ radial (R), 2+ radial (L) , 2+ dorsalis pedis (R), 2+ dorsalis pedis (L) Gastrointestinal: normal bowel sounds, non tender, soft, non-distended, no guarding, no rebound Rectal: deferred Genitourinary: no CVA tenderness Musculoskeletal: back normal, no calf tenderness, gait/station normal, other - Right shoulder dislocation Neurologic: alert, motor strength/tone normal, oriented x3, sensory intact, responsive, speech normal Psychiatric: judgement/insight normal, memory normal, mood/affect normal, no suicidal/homicidal ideation Skin: no rash Lymphatic: no adenopathy Procedures Splinting Splinting : Consent: Verbal Pre-Proc Neuro Vasc Exam: normal Post-Proc Neuro Vasc Exam: normal Patient Tolerated: Well Complications: None Progress Right shoulder sling applied as well as immobilizer Joint Reduction Joint Reduction : Consent: Verbal Joint Reduction Site: shoulder (R) Procedural Sedation: Yes Reduction Attempts: One Pre-Procedure NV Exam: Yes Post-Procedure NV Exam: Yes Post Joint Reduction Film: joint reduced Patient Tolerated: Well Complications: None Medical Decision Making PA Attestation All my diagnosis and treatment plans were reviewed ad discussed with my supervising physician Dr. Tomas Diagnostic Impression: Primary Impression: Shoulder dislocation Additional Impressions: Head contusion Knee contusion ER Course 49-year-old female with no significant past medical history here complaining of a 10 out of 10 right shoulder pain, 3/10 right knee pain, and headache after fall earlier today. Right shoulder appears to be dislocated. Has not taken medication for symptom relief. Does not know if she hit her head or not however complains of headache and dizziness. Patient is currently not taking any blood thinners. Denies any tingling or numbness. Denies all other injuries , loss of consciousness. Ddx considered but are not limited to: cerebral hematoma, concussion, skull fracture, head contusion, shoulder dislocation, rotator cuff tear, shoulder fracture, shoulder sprain Vital signs: are WNL, pt. is afebrile H&PE are most consistent with: Right shoulder dislocation, head contusion, knee contusion ORDERS: head CT no contrast which was ordered after patient told me that she also might have accidentally hit her head after he had already reduced the shoulder, right shoulder x-ray, right knee x-ray, ibuprofen, tylenol 3 ED INTERVENTIONS: Morphine and Zofran IM DISCHARGE: At this time pt. is stable for d/c to home. Will provide printed patient care instructions, and any necessary prescriptions. Care plan and follow up instructions have been discussed with the patient prior to discharge. Right shoulder was successfully reduced and post reduction film confirmed the reduction, follow-up with recreational specialist, take medication as directed, if worsening symptoms return to the emergency room Other X-Ray Diagnostic Results Other X-Ray Diagnostic Results #1: X-Ray ordered: right shoulder # of Views/Limited Vs Complete: 3 View Indication: Pain EP Interpretation: Yes PA Xray: Interpretation reviewed, by supervising , and agrees with findings. Interpretation: no soft tissue swelling, no fractures, other - dislocation Impression: Other - dislocation Electronically Signed by: Magen Shirley PA-C Other X-Ray Diagnostic Results #2: X-Ray ordered: Right shoulder x-ray post reduction # of Views/Limited Vs Complete: 3 View Indication: Pain EP Interpretation: Yes PA Xray: Interpretation reviewed, by supervising , and agrees with findings. Interpretation: no dislocation, no soft tissue swelling, no fractures Impression: No acute disease Electronically Signed by: Magen Shirley PA-C Other X-Ray Diagnostic Results #3: X-Ray ordered: Right knee # of Views/Limited Vs Complete: 3 View Indication: Pain EP Interpretation: Yes PA Xray: Interpretation reviewed, by supervising MD, and agrees with findings. Interpretation: no dislocation, no soft tissue swelling, no fractures Impression: No acute disease Electronically Signed by: Magen Shirley PA-C CT/MRI/US Diagnostic Results CT/MRI/US Diagnostic Results : Imaging Test Ordered: Head CT no contrast Impression No intracranial bleed, no skull fracture Last Vital Signs Date Time Temp Pulse Resp B/P (MAP) Pulse Ox O2 Delivery O2 Flow Rate FiO2 10/27/19 20:05 98.4 10/27/19 19:16 103 18 147/86 97 Room Air Status: improved Disposition: HOME, SELF-CARE Condition: Stable Scripts Acetaminophen With Codeine (T#3) (TYLENOL #3 TAB*) Y Tab 1 TAB ORAL Q8HR PRN for For Pain for 3 Days, #10 TAB Prov: Magen Diaz 10/27/19 Ibuprofen* (MOTRIN*) 600 Mg Tablet 600 MG ORAL Q6H PRN for For Pain, #30 TAB Prov: Magen Diaz 10/27/19 Referrals: NOT CHOSEN IPA/,REFERRING (PCP) Patient Instructions: Facial or Scalp Contusion, [id number], Knee Pain, Easy- to-Read, Shoulder Dislocation, [id number] Additional Instructions: Follow-up with recreational specialist, take medication as directed, if worsening symptoms return to the emergency room Magen Diaz Oct 27, 2019 20:38
[2019-10-27] MEDS ORDERED: ACETAMINOPHEN-1 EAC1 ORAL (20:39)
[2019-10-27] MEDS ORDERED: IBUPROFEN600 MG ORAL (20:39)
--- NOTE | 2019-10-27 20:40 | NUR ---
ED Nurse Note: ERPA at bedside
[2019-10-27 20:47] VITALS: BP 147/86
--- NOTE | 2019-10-27 20:47 | NUR ---
ER DISCHARGE NOTE: Patient is cleared to be discharged per ERMD, pt is aox4, on room air, with stable vital signs. pt was given dc and prescription instructions, pt was able to verbalize understanding, pt id band . pt is able to ambulate with steady gait. pt took all belongings. pt placed in brace by manager culture
--- NOTE | 2019-10-28 09:04 | Diagnostic Imaging Report ---
Indication: Right shoulder pain Technique: 3 views of the right shoulder Comparison: none Findings: There is anterior dislocation of the right shoulder. No definite acute fractures. No dislocations. Surgical clips are seen in the right axilla. Impression: Positive for anterior right shoulder dislocation
--- NOTE | 2019-10-28 09:04 | Diagnostic Imaging Report ---
Indication: Right knee pain Technique: 3 views of the right knee Comparison: None Findings: There is a small superior pole patellar traction osteophyte. No acute fractures. No dislocations. There is medial compartmental degenerative joint space narrowing Impression: Degenerative changes, as described. No acute bony trauma
--- NOTE | 2019-10-28 09:20 | Diagnostic Imaging Report ---
Indication: Reason For Exam: PAIN Technique: 2 views of the right shoulder Comparison: none Findings: Interim reduction of previously demonstrated right shoulder dislocation. There is questionably a fracture fragment off of anterior inferior glenoid. Impression: Satisfactory reduction of previously demonstrated shoulder dislocation Suspect anterior inferior glenoid fracture. Consider CT for further evaluation this finding was discussed by phone with Dr. Rebollar in the emergency room at the time of interpretation
--- NOTE | 2019-10-28 18:57 | Emergency Room Report ---
Physical Exam Vital Signs Date Time Temp Pulse Resp B/P (MAP) Pulse Ox O2 Delivery O2 Flow Rate FiO2 10/27/19 19:06 98.4 100 18 147/86 (106) 97 Room Air Medical Decision Making Diagnostic Impression: Primary Impression: Shoulder dislocation Additional Impressions: Head contusion Knee contusion ER Course Called patient spoke to patient first in [place] then had her authorization to speak in Italian to her son and explained to her that the radiologist today read the x-ray of the shoulder and in addition to the shoulder dislocation there was also fracture however treatment with same and the sling was applied as well as immobilizer, shoulder was successfully reduced, patient to follow-up with early breastfeeding care specialist. Patient and patient's son both understood and agreed with the treatment patient is doing much better. Last Vital Signs Date Time Temp Pulse Resp B/P (MAP) Pulse Ox O2 Delivery O2 Flow Rate FiO2 10/27/19 20:47 98.4 103 18 147/86 97 Room Air Disposition: HOME, SELF-CARE Condition: Stable Scripts Acetaminophen With Codeine (T#3) (TYLENOL #3 TAB*) Y Tab 1 TAB ORAL Q8HR PRN for For Pain for 3 Days, #10 TAB Prov: Magen Diaz 10/27/19 Ibuprofen* (MOTRIN*) 600 Mg Tablet 600 MG ORAL Q6H PRN for For Pain, #30 TAB Prov: Magen Diaz 10/27/19 Referrals: NOT CHOSEN IPA/,REFERRING (PCP) [facility] Open 24 hour /7 days a week by Appointment Only [address] [facility] [id number] Patient Instructions: Facial or Scalp Contusion, [id number], Knee Pain, Easy- to-Read, Shoulder Dislocation, [id number] Additional Instructions: Follow-up with early breastfeeding care specialist, take medication as directed, if worsening symptoms return to the emergency room Magen Diaz Oct 28, 2019 18:56
== END 2019-10-27 20:47 | disposition home or self-care (01) ==
LOC: EMR 19:30
DX: S43.004A Unspecified dislocation of right shoulder joint, initial encounter (principal); S00.93XA Contusion of unspecified part of head, initial encounter; S80.01XA Contusion of right knee, initial encounter; W19.XXXA Unspecified fall, initial encounter; Y92.9 Unspecified place or not applicable; Z90.11 Acquired absence of right breast and nipple; Z85.3 Personal history of malignant neoplasm of breast
CPT/HCPCS: 23650; 70450; 73020; 73562; 96374; 96375; J2270; J2405; Z7502; 99284

== ENCOUNTER 2020-02-21 18:32 | Emergency (ER) | payer MEDICAID ==
[~2020-02-21] VITALS: Ht 160 cm; Wt 108.9 kg
[~2020-02-21 18:32] MED LIST changes: +ACETAMINOPHEN-1 EAC1 ORAL
--- NOTE | 2020-02-21 18:43 | NUR ---
ED Nurse Note: Pt walked in to ED for C/ O weakness and being anxious x few weeks. pt is alert x3.
[2020-02-21 18:56] VITALS: BP 122/80
--- NOTE | 2020-02-21 18:59 | Emergency Room Report ---
History of Present Illness General Chief Complaint: Generalized Weakness Source: Patient Present Illness HPI Patient presents with 1 month of worsening anxiety episodes. These occur with dyspnea, palpitations weakness and tearfulness. She is not suicidal. She is taking bupropion. She says this does not help to control symptoms. In the past she has been treated for low potassium and anemia. She has nausea on occasion. She has been seen for reflux. She has an empty feeling in her stomach with some burning. This is worsened during the anxiety attacks. Patient states that her blood sugars been high in the past. She has been urinating more frequently and drinking more fluids. She has generalized weakness also. She not been treated for diabetes in the past. She has a family history. No fevers, chills, sore throat, chest pain, vomiting, diarrhea, dysuria, abdominal pain, joint pain, rashes, visual changes, dizziness, headache. Towards the end of the encounter she reports some fullness in her ears. Allergies: Coded Allergies: No Known Allergies (Unverified , 08/17/18) COVID-19 Screening Contact w/high risk pt: No Recent Travel to affected area: No Experienced COVID-19 symptoms?: No COVID-19 Testing performed CMS EXPERT: No Patient History Past Medical History: see triage record Social History: Denies: smoking, alcohol use, drug use Social History Narrative Lives with her son Reviewed Nursing Documentation: PMH: Agreed; PSxH: Agreed Nursing Documentation-PMH Hx Cardiac Problems: No Hx Hypertension: No Hx Pacemaker: No Hx Asthma: No Hx COPD: No Hx Diabetes: No Hx Cancer: Yes - breast cancer, mastectomy right side 2009 Hx Gastrointestinal Problems: Yes - gastritis Hx Dialysis: No Hx Neurological Problems: No Hx Cerebrovascular Accident: No Hx Seizures: No Review of Systems All Other Systems: negative except mentioned in HPI Physical Exam Vital Signs Date Time Temp Pulse Resp B/P (MAP) Pulse Ox O2 Delivery O2 Flow Rate FiO2 20 18:36 98.1 98 20 126/82 (97) 95 Room Air Sp02 EP Interpretation: reviewed, normal General Appearance: well appearing, no apparent distress, GCS 15, other - Tearful Head: normocephalic Eyes: bilateral eye normal inspection, bilateral eye PERRL, bilateral eye EOMI ENT: normal pharynx, moist mucus membranes Neck: supple Respiratory: lungs clear, normal breath sounds Cardiovascular #1: regular rate, rhythm, no edema Cardiovascular #2: 2+ radial (R) Gastrointestinal: normal inspection, normal bowel sounds, non tender, no mass, non-distended, overweight Genitourinary: no CVA tenderness Musculoskeletal: back normal, normal range of motion, gait/station normal Neurologic: alert, oriented x3, grossly normal Psychiatric: no suicidal/homicidal ideation, anxious Skin: no rash, warm/dry Medical Decision Making Diagnostic Impression: Primary Impression: Dyspnea Qualified Codes: R06.00 - Dyspnea, unspecified Additional Impression: Anxiety ER Course Patient presents with dyspnea and palpitations. Differential includes acute myocardial infarction, unstable angina, anxiety, electrolyte imbalance, hyperglycemia, dehydration amongst others. She states that her blood sugars have been high in the past. Evaluation with EKG, chest x-ray and labs. Treatment with Ativan. Also mild IV hydration. EKG without injury. Chest x-ray poor inspiration but no infiltrates. Laboratory unremarkable. Glucose 149. Minimal elevation of 2 liver function tests. Urinalysis negative. Patient with resolution of her symptoms and marked improvement. Discussion of findings with patient. Discussion of treatment plan. Advised the importance of following up with her physician. Patient stable for outpatient observation and treatment. Laboratory Tests Test 02/21/20 19:20 White Blood Count 10.0 K/UL (4.8-10.8) Red Blood Count 4.69 M/UL (4.20-5.40) Hemoglobin 14.6 G/DL (12.0-16.0) Hematocrit 44.9 % (37.0-47.0) Mean Corpuscular Volume 96 FL (80-99) Mean Corpuscular Hemoglobin 31.1 PG (27.0-31.0) H Mean Corpuscular Hemoglobin Concent 32.4 G/DL (32.0-36.0) Red Cell Distribution Width 13.8 % (11.6-14.8) Platelet Count 225 K/UL (150-450) Mean Platelet Volume 8.6 FL (6.5-10.1) Neutrophils (%) (Auto) 52.3 % (45.0-75.0) Lymphocytes (%) (Auto) 38.3 % (20.0-45.0) Monocytes (%) (Auto) 6.3 % (1.0-10.0) Eosinophils (%) (Auto) 1.4 % (0.0-3.0) Basophils (%) (Auto) 1.8 % (0.0-2.0) Prothrombin Time 10.5 SEC (9.30-11.50) Prothrombin Time INR 0.9 (0.9-1.1) Activated Partial Thromboplast Time 29 SEC (23-33) Urine Color Pale yellow Urine Appearance Clear Urine pH 7 (4.5-8.0) Urine Specific [place] 1.010 (1.005-1.035) Urine Protein Negative (NEGATIVE) Urine Glucose (UA) Negative (NEGATIVE) Urine Ketones Negative (NEGATIVE) Urine Blood Negative (NEGATIVE) Urine Nitrite Negative (NEGATIVE) Urine Bilirubin Negative (NEGATIVE) Urine Urobilinogen Normal MG/DL (0.0-1.0) Urine Leukocyte Esterase 2+ (NEGATIVE) H Urine RBC 0-2 /HPF (0 - 2) Urine WBC 2-4 /HPF (0 - 2) Urine Squamous Epithelial Cells Few /LPF (NONE/OCC) Urine Bacteria Occasional /HPF (NONE) Sodium Level 140 MMOL/L (136-145) Potassium Level 3.9 MMOL/L (3.5-5.1) Chloride Level 105 MMOL/L (98-107) Carbon Dioxide Level 27 MMOL/L (21-32) Anion Gap 8 mmol/L (5-15) Blood Urea Nitrogen 12 mg/dL (7-18) Creatinine 0.8 MG/DL (0.55-1.30) Estimated Glomerular Filtration Rate > 60 mL/min (>60) Glucose Level 149 MG/DL (74-106) H Calcium Level 8.7 MG/DL (8.5-10.1) Total Bilirubin 0.2 MG/DL (0.2-1.0) Aspartate Amino Transferase (AST) 46 U/L (15-37) H Alanine Aminotransferase (ALT) 84 U/L (12-78) H Alkaline Phosphatase 71 U/L (46-116) Total Creatine Kinase 91 U/L (26-308) Troponin I 0.000 ng/mL (0.000-0.056) Pro-B-Type Natriuretic Peptide 9 pg/mL (0-125) Total Protein 7.9 G/DL (6.4-8.2) Albumin 3.7 G/DL (3.4-5.0) Globulin 4.2 g/dL Albumin/Globulin Ratio 0.9 (1.0-2.7) L Thyroid Stimulating Hormone (TSH) 3.301 uiU/mL (0.358-3.740) EKG Diagnostic Results Rate: normal Rhythm: NSR ST Segments: no acute changes Rhythm Strip Diag. Results EP Interpretation: yes Rhythm: NSR, no PVC's, no ectopy Chest X-Ray Diagnostic Results Chest X-Ray Diagnostic Results : Chest X-Ray Ordered: Yes # of Views/Limited/Complete: 1 View Indication: Shortness of Breath EP Interpretation: Yes Interpretation: no consolidation, no effusion, no pneumothorax, other - Poor inspiration Impression: No acute disease Electronically Signed by: Electronically signed by Carroll Roberts MD Last Vital Signs Date Time Temp Pulse Resp B/P (MAP) Pulse Ox O2 Delivery O2 Flow Rate FiO2 02/21/20 20:50 98.1 89 17 122/80 95 Room Air Status: improved Disposition: HOME, SELF-CARE Condition: Improved Scripts Lorazepam* (ATIVAN*) 0.5 Mg Tablet 0.5 MG ORAL THREE TIMES A DAY, #6 TAB Prov: Carroll Roberts MD 02/21/20 Famotidine* (Pepcid 20mg tablet*) 20 Mg Tablet 20 MG ORAL DAILY, #30 TAB 0 Refills Prov: Carroll Roberts MD 02/21/20 Carroll Roberts MD Feb 21, 2020 18:59
[2020-02-21] MEDS ORDERED: LORazepam Inj 2mg/ml 1ml IV ONE (19:00)
--- NOTE | 2020-02-21 19:04 | NUR ---
ED Nurse Note: Report given to sherlyn paz RN. endorsed plan of care.
[2020-02-21 19:56] LABS: APPEARANCE,URINE CLEAR; BASOPHILS % (AUTO) 1.8 % (0.0-2.0); BILIRUBIN, URINE NEGATIVE (NEGATIVE); COLOR,URINE PALE YELLOW; EOSINOPHILS % (AUTO) 1.4 % (0.0-3.0); GLUCOSE, URINE (UA) NEGATIVE (NEGATIVE); HEMATOCRIT 44.9 % (37.0-47.0); HEMOGLOBIN 14.6 G/DL (12.0-16.0); KETONES,URINE NEGATIVE (NEGATIVE); LEUKOCYTE ESTERASE ,URINE 2+ (NEGATIVE); LYMPHOCYTES % (AUTO) 38.3 % (20.0-45.0); MEAN CORPUSCULAR VOLUME 96 FL (80-99); MONOCYTES % (AUTO) 6.3 % (1.0-10.0); NEUTROPHILS % (AUTO) 52.3 % (45.0-75.0); NITRITE,URINE NEGATIVE (NEGATIVE); PH,URINE 7 (4.5-8.0); PLATELET COUNT 225 K/UL (150-450); PROTEIN,URINE NEGATIVE (NEGATIVE); RED BLOOD COUNT 4.69 M/UL (4.20-5.40); RED CELL DISTRIBUTION WIDTH 13.8 % (11.6-14.8); UROBILINOGEN,URINE NORMAL MG/DL (0.0-1.0)
[2020-02-21 20:13] LABS: INR 0.9 (0.9-1.1)
[2020-02-21 20:14] LABS: ANION GAP 8 mmol/L (5-15); BLOOD UREA NITROGEN 12 mg/dL (7-18); CALCIUM 8.7 MG/DL (8.5-10.1); CARBON DIOXIDE 27 MMOL/L (21-32); CHLORIDE 105 MMOL/L (98-107); CREATININE 0.8 MG/DL (0.55-1.30); POTASSIUM 3.9 MMOL/L (3.5-5.1); SODIUM 140 MMOL/L (136-145)
[2020-02-21 20:26] LABS: ALANINE AMINOTRANSFERASE 84 U/L (12-78); ALBUMIN 3.7 G/DL (3.4-5.0); ALBUMIN/GLOBULIN RATIO 0.9 (1.0-2.7); ALKALINE PHOSPHATASE 71 U/L (46-116); ASPARTATE AMINO TRANSFERASE 46 U/L (15-37); BILIRUBIN,TOTAL 0.2 MG/DL (0.2-1.0); CREATINE KINASE 91 U/L (26-308)
[2020-02-21] MEDS ORDERED: FAMOTIDINE20 MG ORAL (20:39)
[2020-02-21] MEDS ORDERED: ATIVAN0.5 MG ORAL (20:39)
[2020-02-21 20:50] VITALS: BP 122/80
--- NOTE | 2020-02-21 20:51 | NUR ---
ER DISCHARGE NOTE: Patient is cleared to be discharged per ERMD, pt is aox4, on room air, with stable vital signs. pt was given dc and prescription instructions, pt was able to verbalize understanding, pt id band and iv site removed without complications. pt is able to ambulate with steady gait. pt took all belongings.
--- NOTE | 2020-02-22 08:45 | Diagnostic Imaging Report ---
Indication: Chest pain Technique: One view of the chest Comparison: 01/19/2018 Findings: Suboptimal inspiration. Right axillary surgical clips are again demonstrated. The heart is borderline enlarged. No definite acute infiltrates, effusions, or congestion. Impression: No acute process
== END 2020-02-21 20:50 | disposition home or self-care (01) ==
LOC: EMR 18:56
DX: F41.9 Anxiety disorder, unspecified (principal); R06.00 Dyspnea, unspecified; R11.0 Nausea; Z85.3 Personal history of malignant neoplasm of breast; Z90.11 Acquired absence of right breast and nipple; E66.3 Overweight; Z68.41 Body mass index [BMI] 40.0-44.9, adult
CPT/HCPCS: 36415; 71045; 80053; 81003; 82550; 83880; 84443; 84484; 85025; 85610; 85730; 93005; 96361; 96374; J7030; Z7502; 99284

== ENCOUNTER 2020-04-18 15:44 | Emergency (ER) | payer MEDICAID ==
[~2020-04-18] VITALS: Ht 157.5 cm; Wt 108.9 kg
[~2020-04-18 15:44] MED LIST changes: +FAMOTIDINE20 MG ORAL
[2020-04-18 15:48] VITALS: BP 122/76
--- NOTE | 2020-04-18 15:48 | NUR ---
ED Nurse Note: PT walekd in to ed for C? dizziness x 1 week with feel of her ears are clogged. pt states she has been taking meclizine 25mg but is not very effective, instead makes her very sleepy. pt also reports having vaginal "spotting" x 9 days. pt states she had not had menstural cycle since 2007.
[2020-04-18] MEDS ORDERED: LORazepam Inj 2mg/ml 1ml IV ONE (16:15)
--- NOTE | 2020-04-18 16:18 | NUR ---
ED Nurse Note: blood sample collected and sent to lab
--- NOTE | 2020-04-18 16:23 | Emergency Room Report ---
History of Present Illness General Chief Complaint: Dizziness Source: Patient, Medical Record Present Illness HPI Disclaimer: Please note that this report is being documented using DRAGON technology. This can lead to erroneous entry secondary to incorrect interpretation by the dictating instrument. HPI: 49-year-old female history of vertigo, gastritis, previous breast cancer treated with chemotherapy presents for evaluation of epigastric discomfort, dizziness, vaginal spotting. She is Lithuanian-speaking and HPI and physical were done with the use of an prescription benefit specialist. Patient uses meclizine for dizziness and was seen in the emergency department 2 weeks ago complaining of intermittent vertigo symptoms. She has been using meclizine but states it makes her too sleepy. She reported vertigo several times over the past few days that is short -lived and sudden onset and typically relieved by taking meclizine but this again makes her very sleepy so she does not like to use it often. She reports tinnitus along with this though not always. Denies headache, numbness, tingling , ear pain, loss of hearing. She has not been seen by ENT or neurologist. CT scan last visit unremarkable as were labs. Also has a history of gastritis complains of increased gas and belching along with pressure in the epigastrium that radiates up to the left chest. States she feels a big "bubble" that will go away. Denies chest pain, palpitations, cough, fever, chills, shortness of breath otherwise. Denies vomiting or diarrhea. Lastly, the patient complains of vaginal spotting. She is postmenopausal for the past 10 years though over the past few years she has had intermittent episodes of bleeding. She reports spotting on tissue after using the bathroom for the past 9 days. Denies dion bleeding, purulent drainage, dysuria, hematuria, flank pain. Saw [facility] approximately 2 months ago but was not having these issues at that time. She is scheduled to follow-up with a fisher trot line in 2 weeks for EGD and to discuss her GI symptoms. PMH: Vertigo, GERD, breast cancer status post chemotherapy PSH: Reviewed Allergies: Reviewed Social Hx: Reviewed Allergies: Coded Allergies: No Known Allergies (Unverified , 08/17/18) COVID-19 Screening Contact w/high risk pt: No Recent Travel to affected area: No Experienced COVID-19 symptoms?: No COVID-19 Testing performed DIE SINKER APPRENTICE: No Nursing Documentation-PMH Past Medical History: No History, Except For Hx Hypertension: No Hx Pacemaker: No Hx Asthma: No Hx COPD: No Hx Diabetes: No Hx Cancer: Yes - breast cancer, mastectomy right side 2009 Hx Gastrointestinal Problems: Yes - gastritis Hx Dialysis: No Hx Neurological Problems: No Hx Cerebrovascular Accident: No Hx Seizures: No Review of Systems All Other Systems: negative except mentioned in HPI Physical Exam Vital Signs Date Time Temp Pulse Resp B/P (MAP) Pulse Ox O2 Delivery O2 Flow Rate FiO2 04/18/20 15:48 79 16 Room Air 04/18/20 15:48 98.3 122/76 98 General: Awake and alert, no acute distress HEENT: NC/AT. EOMI. PERRLA. Visual sarah are full. No nystagmus. Facial expressions are symmetrical. No facial droop. Hints negative. Tympanic membranes are slightly erythematous bilaterally, nonbulging with clear landmarks. No discharge or edema in the external auditory canals. No obvious effusions. Cardiovascular: RRR. S1 and S2 normal. No murmur appreciated Resp: Normal work of breathing. No cough, wheezing or crackles appreciated Abdomen: Abdomen is soft, nondistended. Nontender Skin: Intact. No abrasions, laceration or rash over the exposed skin MSK: Normal tone and bulk. Moving all extremities. No obvious deformity. There is no drift in the upper or lower extremities bilaterally. Neuro: Awake and alert. Mentating appropriately. Facial expression symmetrical. No dysarthria. Sensation to light touch is intact over the upper and lower extremities. The patient has intact speech with good repetition, comprehension. Fund of knowledge is full. No aphasia Medical Decision Making Diagnostic Impression: Primary Impression: GERD (gastroesophageal reflux disease) Additional Impressions: Vertigo Abnormal uterine bleeding (AUB) Endometrial mass Anxiety ER Course 49-year-old female history of vertigo presents with multiple complaints including intermittent vertiginous symptoms, epigastric discomfort and increased gas, vaginal spotting for the past 9 days. Differential includes but is not limited to otitis media, middle ear effusion, viral syndrome, peripheral vertigo, central vertigo, Mnire's disease, gastritis, gastroenteritis, occult ACS, chest mass, abnormal uterine bleeding, fibroids, UTI, pyelonephritis to name a few. CT head performed 2 weeks ago unremarkable as were labs. Will repeat labs and have an ultrasound of the abdomen. Patient be given Ativan as she also reports anxiety. On reevaluation labs are returned within normal limits. No evidence of significant bleed. Patient underwent ultrasound to evaluate for abnormal uterine bleeding and found an endometrial mass and thickened endometrium. Patient states her endometrium is thickened as as result of the chemotherapy she has been on for 10 years. She has been made aware of a mass in the ear uterus in the past. Copies of her previous ultrasound and today's ultrasound were included in discharge paperwork for her [facility] to evaluate. Patient is stable for outpatient follow-up. She is requesting a refill of her meclizine which I will provide. Discussed reasons to return to the emergency department. She understands and agrees with this treatment plan. Laboratory Tests Test 04/18/20 16:05 04/18/20 16:30 White Blood Count 11.4 K/UL (4.8-10.8) H Red Blood Count 4.88 M/UL (4.20-5.40) Hemoglobin 14.9 G/DL (12.0-16.0) Hematocrit 44.9 % (37.0-47.0) Mean Corpuscular Volume 92 FL (80-99) Mean Corpuscular Hemoglobin 30.5 PG (27.0-31.0) Mean Corpuscular Hemoglobin Concent 33.1 G/DL (32.0-36.0) Red Cell Distribution Width 13.1 % (11.6-14.8) Platelet Count 256 K/UL (150-450) Mean Platelet Volume 8.4 FL (6.5-10.1) Neutrophils (%) (Auto) 59.0 % (45.0-75.0) Lymphocytes (%) (Auto) 32.5 % (20.0-45.0) Monocytes (%) (Auto) 6.0 % (1.0-10.0) Eosinophils (%) (Auto) 1.3 % (0.0-3.0) Basophils (%) (Auto) 1.2 % (0.0-2.0) Sodium Level 139 MMOL/L (136-145) Potassium Level 3.8 MMOL/L (3.5-5.1) Chloride Level 103 MMOL/L (98-107) Carbon Dioxide Level 28 MMOL/L (21-32) Anion Gap 8 mmol/L (5-15) Blood Urea Nitrogen 16 mg/dL (7-18) Creatinine 0.8 MG/DL (0.55-1.30) Estimated Glomerular Filtration Rate > 60 mL/min (>60) Glucose Level 130 MG/DL (74-106) H Calcium Level 9.6 MG/DL (8.5-10.1) Total Bilirubin 0.3 MG/DL (0.2-1.0) Aspartate Amino Transferase (AST) 25 U/L (15-37) Alanine Aminotransferase (ALT) 55 U/L (12-78) Alkaline Phosphatase 81 U/L (46-116) Troponin I 0.000 ng/mL (0.000-0.056) Total Protein 8.2 G/DL (6.4-8.2) Albumin 3.6 G/DL (3.4-5.0) Globulin 4.6 g/dL Albumin/Globulin Ratio 0.8 (1.0-2.7) L Lipase 96 U/L (73-393) Urine Color Pale yellow Urine Appearance Clear Urine pH 6 (4.5-8.0) Urine Specific [place] 1.010 (1.005-1.035) Urine Protein Negative (NEGATIVE) Urine Glucose (UA) Negative (NEGATIVE) Urine Ketones Negative (NEGATIVE) Urine Blood 5+ (NEGATIVE) H Urine Nitrite Negative (NEGATIVE) Urine Bilirubin Negative (NEGATIVE) Urine Urobilinogen Normal MG/DL (0.0-1.0) Urine Leukocyte Esterase 1+ (NEGATIVE) H Urine RBC 40-60 /HPF (0 - 2) H Urine WBC 2-4 /HPF (0 - 2) Urine Squamous Epithelial Cells Occasional /LPF Urine Bacteria None /HPF (NONE) Urine HCG, Qualitative Negative (NEGATIVE) EKG Diagnostic Results EKG Time: 16:57 Rate: normal Rhythm: NSR ST Segments: no acute changes Other Impression Sinus rhythm, normal axis, normal intervals, no ST segment changes Rhythm Strip Diag. Results Rhythm Strip Time: 16:57 EP Interpretation: yes Rate: 84 Rhythm: NSR, no PVC's, no ectopy Chest X-Ray Diagnostic Results Chest X-Ray Diagnostic Results : Chest X-Ray Ordered: Yes # of Views/Limited/Complete: 1 View Indication: Chest Pain EP Interpretation: Yes Interpretation: no consolidation, no effusion, no pneumothorax, other - No free air noted Impression: No acute disease Electronically Signed by: Electronically signed by Dr. Hector Ward Last Vital Signs Date Time Temp Pulse Resp B/P (MAP) Pulse Ox O2 Delivery O2 Flow Rate FiO2 04/18/20 15:49 99.7 88 15 119/82 (94) 96 Room Air Disposition: HOME, SELF-CARE Condition: Stable Scripts Meclizine Hcl* (MECLIZINE*) 25 Mg Tablet 25 MG ORAL THREE TIMES A DAY, #30 TAB Prov: Hector Ward MD 04/18/20 Referrals: NOT CHOSEN IPA/,REFERRING (PCP) Hector Ward MD Apr 18, 2020 16:23
--- NOTE | 2020-04-18 16:25 | NUR ---
ED Nurse Note: cxr being taken at bedside
[2020-04-18 16:29] LABS: BASOPHILS % (AUTO) 1.2 % (0.0-2.0); EOSINOPHILS % (AUTO) 1.3 % (0.0-3.0); HEMATOCRIT 44.9 % (37.0-47.0); HEMOGLOBIN 14.9 G/DL (12.0-16.0); LYMPHOCYTES % (AUTO) 32.5 % (20.0-45.0); MEAN CORPUSCULAR VOLUME 92 FL (80-99); PLATELET COUNT 256 K/UL (150-450); RED BLOOD COUNT 4.88 M/UL (4.20-5.40); RED CELL DISTRIBUTION WIDTH 13.1 % (11.6-14.8); WHITE BLOOD COUNT 11.4 K/UL (4.8-10.8)
[2020-04-18 16:31] LABS: ANION GAP 8 mmol/L (5-15); BLOOD UREA NITROGEN 16 mg/dL (7-18); CALCIUM 9.6 MG/DL (8.5-10.1); CARBON DIOXIDE 28 MMOL/L (21-32); CHLORIDE 103 MMOL/L (98-107); CREATININE 0.8 MG/DL (0.55-1.30); POTASSIUM 3.8 MMOL/L (3.5-5.1); SODIUM 139 MMOL/L (136-145)
[2020-04-18 16:36] LABS: ALANINE AMINOTRANSFERASE 55 U/L (12-78); ALBUMIN 3.6 G/DL (3.4-5.0); ALBUMIN/GLOBULIN RATIO 0.8 (1.0-2.7); ALKALINE PHOSPHATASE 81 U/L (46-116); ASPARTATE AMINO TRANSFERASE 25 U/L (15-37); BILIRUBIN,TOTAL 0.3 MG/DL (0.2-1.0)
--- NOTE | 2020-04-18 16:48 | NUR ---
ED Nurse Note: urine sample collected and sent to lab
--- NOTE | 2020-04-18 16:51 | Diagnostic Imaging Report ---
Indication: Chest pain Technique: One view of the chest Comparison: none Findings: Lungs and pleural spaces are clear. Heart size is normal. No significant change Impression: No acute process
[2020-04-18 16:56] LABS: APPEARANCE,URINE CLEAR; BILIRUBIN, URINE NEGATIVE (NEGATIVE); COLOR,URINE PALE YELLOW; GLUCOSE, URINE (UA) NEGATIVE (NEGATIVE); KETONES,URINE NEGATIVE (NEGATIVE); LEUKOCYTE ESTERASE ,URINE 1+ (NEGATIVE); NITRITE,URINE NEGATIVE (NEGATIVE); PH,URINE 6 (4.5-8.0); PROTEIN,URINE NEGATIVE (NEGATIVE); UROBILINOGEN,URINE NORMAL MG/DL (0.0-1.0)
--- NOTE | 2020-04-18 18:02 | NUR ---
ED Nurse Note: pt is seen in bed resting, no acute distress is noted. Vital signs stable as documented. will continue to monitor.
[2020-04-18 18:03] VITALS: BP 128/73
--- NOTE | 2020-04-18 18:41 | NUR ---
ED Nurse Note: ultrasound being performed at bedside at this time.
--- NOTE | 2020-04-18 19:06 | NUR ---
ED Nurse Note: report given to JENNIFER chahal. ultrasound still being performed at bedside. endorsed plan of care.
[2020-04-18 19:21] VITALS: BP 118/82
--- NOTE | 2020-04-18 20:26 | Diagnostic Imaging Report ---
EXAM: US Pelvis Transabdominal, Complete CLINICAL HISTORY: BLD TECHNIQUE: Real-time complete transabdominal pelvic ultrasound with image documentation. COMPARISON: No relevant prior studies available. FINDINGS: Uterus/cervix: Heterogeneous appearance of the myometrium which demonstrates a globular morphology with striated appearance. The uterus is enlarged measuring 13 x 8 cm. Thickened heterogeneous appearing endometrial echo complex measuring 32 mm, with positive internal vascularity (image 4). Several nabothian cysts are identified. Right ovary: Unremarkable. No mass. Normal blood flow. Left ovary: The left ovary was unable to be visualized. Free fluid: No free fluid. Bladder: Not visualized. IMPRESSION: 1. Enlarged and heterogeneous globular shaped uterus, correlate for adenomyosis. 2. Heterogeneous and thickened endometrial echo complex (32 mm) with positive internal vascularity. Differential considerations include hyperplasia but endometrial cancer not excluded. Consider endometrial sampling to further evaluate. 3. Normal sonographic appearance of the right ovary. The left ovary was unable to be visualized.
[2020-04-18] MEDS ORDERED: MECLIZINE HCL25 MG ORAL (20:43)
[2020-04-18 20:45] VITALS: BP 119/73
--- NOTE | 2020-04-18 20:45 | NUR ---
ER DISCHARGE NOTE: Patient is cleared to be discharged per ERMD, pt is aox4, on room air, with stable vital signs.Dishcarge instructions were translated in italian via italian speaking personnel. pt was given dc and prescription requested for dizziness sent to patient's pharmacy on file, pt was able to verbalize understanding, pt id band and iv site removed without complications. pt is able to ambulate with steady gait. pt took all belongings.
== END 2020-04-18 20:45 | disposition home or self-care (01) ==
LOC: EMR 16:01
DX: K21.9 Gastro-esophageal reflux disease without esophagitis (principal); R42 Dizziness and giddiness; N93.9 Abnormal uterine and vaginal bleeding, unspecified; F41.9 Anxiety disorder, unspecified; N85.00 Endometrial hyperplasia, unspecified; Z85.3 Personal history of malignant neoplasm of breast; Z90.11 Acquired absence of right breast and nipple
CPT/HCPCS: 36415; 71045; 76830; 76857; 80053; 81003; 81025; 83690; 84484; 85025; 93005; 96374; 96375; S0028; Z7502; 99284

== ENCOUNTER 2020-09-17 17:21 | Emergency (ER) | payer MEDICAID ==
[~2020-09-17] VITALS: Ht 165.1 cm; Wt 99.8 kg
[2020-09-17 17:50] VITALS: BP 154/93
[2020-09-17] MEDS ORDERED: MEDROL DOSEPAK4 MG ORAL (18:04)
[2020-09-17] MEDS ORDERED: MUCINEX600 MG PO (18:04)
--- NOTE | 2020-09-17 18:12 | Emergency Room Report ---
History of Present Illness General Chief Complaint: Earache Source: Patient Present Illness HPI Disclaimer: Please note that this report is being documented using [employer] technology. This can lead to erroneous entry secondary to incorrect interpretation by the dictating instrument. HPI: 50-year-old female history of vertigo, gastritis, prior breast cancer status post chemotherapy presents for evaluation of fullness in both ears. 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 Symptoms present approximately 2 weeks. She notes bilateral pressure, nasal congestion, postnasal drip and intermittently pressure in the frontal maxillary sinuses. Denies changes in vision, pain with extraocular movements, fever or chills. Headaches are not persistent. She denies changes in her hearing, or tinnitus. She reports hearing crackles bilaterally with head motions. Occasionally she will feel unsteady on her feet when turning her head. This is short-lived and she always returns to baseline. Denies head injury. Denies leakage of fluid from the ears. Denies pain in the ears or mastoid. 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 COVID-19 Screening: Negative COVID-19 COVID-19 Testing Source: nasal Patient History Now: No Nursing Documentation-PMH Hx Hypertension: No Hx Pacemaker: No Hx Asthma: No Hx COPD: No Hx Diabetes: No Hx Cancer: Yes - breast cancer, mastectomy right side 2009 Hx Gastrointestinal Problems: Yes - gastritis Hx Dialysis: No Hx Neurological Problems: No Hx Cerebrovascular Accident: No Hx Seizures: No Review of Systems All Other Systems: negative except mentioned in HPI Physical Exam Vital Signs Date Time Temp Pulse Resp B/P (MAP) Pulse Ox O2 Delivery O2 Flow Rate FiO2 09/17/20 17:33 98.1 110 22 154/93 (113) 95 Room Air General: Awake and alert, no acute distress HEENT: NC/AT. EOMI. PERRLA. No nystagmus. Mild tenderness over frontal maxillary sinuses. Panic membranes bilaterally are pearly gibson with mild bulging but landmarks are still visible. There is small bilateral effusions. No significant tenderness on otoscope insertion. No obvious perforation. No tenderness over the mastoids. Resp: Normal work of breathing Skin: Intact. No abrasions, laceration or rash over the exposed skin MSK: Normal tone and bulk. Moving all extremities. No obvious deformity. Neuro: Awake and alert. Mentating appropriately Medical Decision Making Diagnostic Impression: Primary Impression: Acute effusion of both middle ears ER Course Is a 50-year-old female presenting for evaluation of bilateral ear pressure. Most consistent with bilateral middle ear effusions likely secondary to nasal congestion from URI. I do not see obvious signs of otitis media. This may be allergic. Patient has a history of chemotherapy treatment and has had vertigo in the past. May related to medication side effects. We will start her on Medrol Dosepak and decongestant. She will follow up with PMD and referred to ENT as needed. Do not believe the patient requires emergent labs or imaging at this time. She is stable for outpatient follow-up. Return precautions discussed. She understands and agrees with the treatment plan. Last Vital Signs Date Time Temp Pulse Resp B/P (MAP) Pulse Ox O2 Delivery O2 Flow Rate FiO2 09/17/20 17:50 98.1 22 154/93 95 Room Air 09/17/20 17:33 110 Disposition: HOME, SELF-CARE Condition: Stable Scripts Guaifenesin (Mucinex) 600 Mg Tab.er.12h 600 MG PO BID for 7 Days, #20 TAB Prov: Hector Ward MD 09/17/20 Methylprednisolone (Methylprednisolone*) 4MG Dspk 4 MG ORAL DIRECTED for 6 Days, #21 EA 0 Refills Day 1: Two tablets before breakfast, one after lunch, one after dinner, and two at bedtime. If started late in the day, take all six tablets at once or divide into two or three doses, unless otherwise directed by prescriber. Day 2: One tablet before breakfast, one after lunch, one after dinner, and two at bedtime Day 3: One tablet before breakfast, one after lunch, one after dinner, and one at bedtime Day 4: One tablet before breakfast, one after lunch, and one at bedtime Day 5: One tablet before breakfast and one at bedtime Day 6: One tablet before breakfast Prov: Hector Ward MD 09/17/20 Additional Instructions: Take the medications as instructed. Follow-up with ear nose throat specialist set up for your primary doctor. If you have severe dizziness, loss of balance, develop fevers, changes in hearing or develop pain in the ears return to the ER for reevaluation. Please follow-up with your primary care doctor in the next 1 to 3 days to discuss this emergency department visit and for reevaluation. If you have any new or worsening symptoms please return to the emergency department for reevaluation. Please note that this report is being documented using [employer] technology. This can lead to erroneous entry secondary to incorrect interpretation by the dictating instrument. Hector Ward MD Sep 17, 2020 18:12
== END 2020-09-17 18:10 | disposition home or self-care (01) ==
LOC: EMR 17:46
DX: H74.8X3 Other specified disorders of middle ear and mastoid, bilateral (principal); K21.9 Gastro-esophageal reflux disease without esophagitis; Z85.3 Personal history of malignant neoplasm of breast; Z90.11 Acquired absence of right breast and nipple; Z92.21 Personal history of antineoplastic chemotherapy
CPT/HCPCS: 99282